=== PATIENT | female | born 1975 | race Caucasian/White ===

== ENCOUNTER 2016-10-17 11:01 | Outpatient (CLI) | payer BC ==
[~2016-10-17 11:01] MED LIST: ABILIFY5 MG PO; ESTRACE2 MG; FISH OIL306 MG; FLAX OIL; KLONOPIN0.5 MG PO; MECLIZINE HCL25 M1 PO; MULTI COMPLETE; NEURONTIN300 MG PO; OMEPRAZOLE20 MG PO; PEPCID20 MG PO; PROZAC40 MG PO; VISTARIL25 MG PO; VITAMIN C500 M1 PO; ZOFRAN ODT4 MG PO
--- NOTE | 2016-10-17 13:58 | DIAGNOSTIC IMAGING REPORT ---
PROCEDURE: XR UPPER GI WITH SBFT INDICATION: Abdominal distention. Pain. TECHNIQUE: Double contrast study. Fluoroscopy time 3.2 minutes, 1772.05 mGy. Oral barium contrast material ingested and 41 images acquired over 1 hour 15-minute time interval. COMPARISON: Compared CT abdomen and pelvis on 08/24/2016. FINDINGS: Preliminary abdominal radiograph demonstrates normal bowel pattern. Surgical clips in right upper quadrant compatible with prior cholecystectomy. Mild to moderate gastroesophageal reflux. Esophagus is otherwise normal. Stomach and duodenum are normal. Small bowel pattern is normal, including terminal ileum with normal transit time with contrast reaching the distal colon and 1 hour 15 minutes. IMPRESSION: 1. Mild to moderate gastroesophageal reflux. 2. Otherwise negative upper GI and small bowel series. 3. Findings discussed with the patient
== END 2016-10-17 23:00 ==
LOC: XR SRH 11:01
DX: R14.0 Abdominal distension (gaseous) (principal); K21.9 Gastro-esophageal reflux disease without esophagitis